=== PATIENT | male | born 1955 | race Caucasian/White ===

== ENCOUNTER 2018-09-09 11:15 | Outpatient (CLI) | payer OTHER ==
--- NOTE | 2018-09-09 14:05 | RAD ---
FXR Shoulder Lt Arthrogram History: [MA 75.102 nontraumatic tear of left rotator cuff, unspecified tear extend] Comparison: None. Findings: The patient was brought to the fluoroscopy suite. All questions were answered. Informed con sent was obtained. Timeout performed. The patient's left shoulder was prepped and draped in normal sterile fashion. 2 mL of lidocaine was i nstilled into the superficial and deep soft tissues. After adequate anesthesia, a 22-gauge spinal nee dle was inserted into the glenohumeral joint using fluoroscopic guidance. A total of 10 mL of contras t solution was instilled into the left shoulder joint. Patient tolerated the procedure well without c omplication. Impression: Technically successful fluoroscopic guided left shoulder arthrogram for MRI. Fluoroscopy time: 0.3 minute Dose area product: 163.4 microgray meters squared
--- NOTE | 2018-09-09 14:20 | MRI ---
FMRI Upper Ext Jt Lt W Con History: [M 75.102 nontraumatic tear of left rotator cuff] Comparison: None Findings: Multiplanar multisequence MRI of the left shoulder was performed after the intra-articular administration of contrast. The exam is limited as the patient could not perform any of the sagittal sequences due to being claustrophobic. Biceps tendon: There is interstitial tearing of the intra-articular biceps tendon extending to the bi ceps labral anchor. Labrum: There is high-grade tearing of the superior, anterior, and inferior labrum extending into the undersurface of the biceps tendon. Tear also extends into the anterior inferior glenoid cartilage Rotator cuff: No full-thickness perforation. Low-grade tendinosis of the supraspinatus and infraspina tus tendons. Muscles: Muscle signal and bulk is normal. Bones: No fracture. No malalignment. No abnormality of the glenoid version. Mild degenerative disease acromioclavicular joint. There is a small free body within the posterior recess measuring 5 mm in transverse by 3 mm in cranio caudad dimension with a width of 1 mm. Impression: 1. Limited evaluation of the shoulder as the patient was unable to finish the examination due to fang strophobia. There is, however, a large superior, anterior and inferior labral tear extending into the undersurface of the biceps tendon. There is also extension of tear into the anterior inferior glenoi d cartilage. 2. Rotator cuff is intact. 3. 5 x 3 x 1 mm free body within the posterior recess likely of cartilage origin.
== END 2018-09-09 11:16 | disposition home or self-care (01) ==
LOC: RAD 11:15
PROVIDERS: ATTEND Orthopaedic Surgery
DX: M75.102 Unspecified rotator cuff tear or rupture of left shoulder, not specified as traumatic (principal)
CPT/HCPCS: 23350

== ENCOUNTER 2018-10-02 03:29 | Outpatient (CLI) | payer OTHER ==
[2018-10-02 14:05] LABS: #Basophils 0.1 thou/uL (0.0-0.2); #Eosinphils 0.2 thou/uL (0.0-0.7); #Lymphocytes 2.2 thou/uL (1.20-3.40); #Monocytes 0.8 thou/uL (0.11-0.59); #Neutrophils 4.1 thou/uL (1.40-6.50); %Basophils 1.5 % (0.0-1.0); %Eosinophils 3.3 % (0.0-10.0); %Lymphocytes 29.4 % (21.0-51.0); %Monocytes 10.2 % (0.0-10.0); %Neutrophils 55.6 % (42.0-75.0); Hemoglobin 15.8 g/dL (14.0-18.0); Mean Corpuscular HGB CONC 33.4 g/dL (32.0-36.0); Mean Corpuscular Volume 92.8 fL (78.0-98.0); Mean Platelet Volume 6.6 fL (7.4-10.4); Platelet Count 361 thou/uL (130-400); RBC Distribution Width 11.2 % (11.5-14.5); White Blood Cell (WBC) Count 7.3 thou/uL (4.8-10.8)
[2018-10-02 14:26] LABS: Anion Gap 10 mmol/L (10-20); BUN (Urea Nitrogen) 16 mg/dL (8.4-25.7); Calc. Creatinine Clearance 0 mL/min (70-130); Calcium 9.4 mg/dL (7.8-10.44); Carbon Dioxide 29 mmol/L (23-31); Chloride 103 mmol/L (98-107); Estimated GFR-MDRD 78; Glucose 109 mg/dL (80-115); Potassium 3.7 mmol/L (3.5-5.1); Sodium 138 mmol/L (136-145)
--- NOTE | 2018-10-04 07:14 | EKG ---
Test Reason : Blood Pressure : / mmHG Vent. Rate : 082 BPM Atrial Rate : 082 BPM P-R Int : 198 ms QRS Dur : 104 ms QT Int : 372 ms P-R-T Axes : 049 010 023 degrees QTc Int : 434 ms Normal sinus rhythm Normal ECG No previous ECGs available Confirmed by TAIWO WEISS ([id number]) on 10/04/2018 7:14:05 AM Referred By: IERO Confirmed By:TAIWO WEISS
== END 2018-10-02 03:30 | disposition home or self-care (01) ==
LOC: LABBT 03:29
PROVIDERS: ATTEND Orthopaedic Surgery
DX: Z01.818 Encounter for other preprocedural examination (principal); M24.012 Loose body in left shoulder
CPT/HCPCS: 80048; 85025; 93005; 93010

== ENCOUNTER 2018-10-04 05:53 | Day surgery (SDC) | payer OTHER ==
[2018-10-02 13:31] VITALS: BMI 36.9
[2018-10-04] MEDS ORDERED: Lidocaine 2% Jelly 5 ML TUBE ONE (06:26)
[2018-10-04] MEDS ORDERED: Fentanyl 100 MCG/2 ML VIAL ONE (06:32)
[2018-10-04] MEDS ORDERED: Midazolam HCl 2 mg/2 ml Vial ONE (06:32)
[2018-10-04] MEDS ORDERED: Bupivacaine/Epinephrine 0.25% 30 ML VIAL ONE (06:34)
[2018-10-04] MEDS ORDERED: Ondansetron PF 4 MG/2 ML Vial IVP PRN (09:45)
[2018-10-04] MEDS ORDERED: Fentanyl 100 MCG/2 ML VIAL IV PRN (09:45)
[2018-10-04] MEDS ORDERED: Zolpidem Tartrate 5 MG TAB PO PRN (09:45)
[2018-10-04] MEDS ORDERED: Promethazine HCl 25 MG/ML VIAL IM PRN (09:45)
[2018-10-04] MEDS ORDERED: HYDROcodone/Acetaminophen 10/325 mg Tablet PO PRN ×2 (09:45)
[2018-10-04] MEDS ORDERED: traMADol HCl 50 MG TAB PO PRN ×2 (09:45)
[2018-10-04] MEDS ORDERED: Ropivacaine 0.2% 550 ML 550 ML NERVE BLCK SCH (09:45)
--- NOTE | 2018-10-04 09:57 | OP ---
DATE OF PROCEDURE: 10/04/2018 PREOPERATIVE DIAGNOSES: Left shoulder labral tear, loose bodies, and appeared to be significant biceps tearing and instability. POSTOPERATIVE DIAGNOSES: 1. Left shoulder degenerative labral tear to include the anterior, the superior and the posterior superior labrum. 2. Intertendinous tearing of the biceps tendon as well as instability of the biceps insertion and the superior labral area. 3. Multiple cartilaginous loose bodies with 2 of these being larger than 1 cm. 4. Grade 4 lesion of the humeral head with unstable chondral flaps. [employer]: Blas Jones PA-C. BLOOD LOSS: About 150 mL. PROCEDURE PERFORMED: 1. Left shoulder arthroscopy with removal of subacromial bursa. 2. Debridement and shaving of degenerative labrum as well as unstable chondral flaps on the grade 4 lesion of the humeral head. 3. Removal of multiple cartilaginous loose bodies including 2 that were greater than 1 cm. 4. Open biceps tenodesis. ANESTHESIA: The patient had general anesthetic as well as preoperative block. IMPLANTS: We used a 7 x 23 Bio[employer]posite Bio-Tenodesis screw. DISPOSITION: He did go to recovery room in stable condition. INDICATIONS: A 63-year-old male comes in complaining of shoulder pain and swelling. He had some catching and at this time has failed to get relief from nonoperative methods. At this time, he opted to have surgery. DESCRIPTION OF PROCEDURE: After all appropriate consent forms were explained and signed, he was taken back to the operating room, at which time was given general anesthetic. He was then rolled into the left lateral decubitus position with all bony prominences being well padded. Beanbag was inflated to hold in this position. The arm was then taken through full range of motion. The arm was then suspended with 15 pounds in standard arthroscopic fashion. The left shoulder and upper extremity were then prepped and draped in surgical fashion. Bony anatomical landmarks were drawn out and the subacromial space was infiltrated with Marcaine with epinephrine. Posterior portal was established. Scope was placed into the shoulder joint. Anterior working portal was made using a needle localization technique. Diagnostic arthroscopy commenced in the glenohumeral joint. There were multiple cartilaginous loose bodies. The 2 of these being greater than 1 cm. These were removed with the grasper as well as the shaver. At this time, the degenerative anterior, superior and posterior superior labrum was debrided with the shaver for better visualization. The biceps tendon itself was found to be wavy in the joint as its insertion was completely unstable and not taut. There was intertendinous tearing of the biceps as well. The rotator cuff appeared to be intact upon visualization. There were couple of loose bodies in the axillary pouch, which were removed as well. The glenoid itself was in good condition. The humeral head had some unstable chondral flaps around the grade 4 lesion. These were taken down as stable base using the shaver. At this time, the subscapularis was found to be intact. We did open up the shaver just making sure there were no more loose bodies anterior and posterior to the subscapularis around the coracoid recess and did not pull out any more loose bodies. At this time, a green cannula was placed anteriorly. A needle was used to place a stitch through the tendon and the tendon was cut off the superior labrum using the surface energy. We then repositioned the camera into the subacromial space. Lateral working portal was made and a copious amount of bursa was removed. No bony decompression was performed and no takedown of the CA ligament was performed. At this time, we removed the scope and we proceeded with open biceps tenodesis. Incision was made down through skin. Bovie was used to coagulate any brisk venous bleeding. Deltoid fascia was opened sharply and at this time, finger dissection was used to dissect down through the deltoid to the underlying humerus. The bicipital groove was opened up. The biceps was pulled out into the wound. Multiple small cartilaginous loose bodies were found at this time and removed. Copious amount of synovitic tissue was noted in the bicipital groove and this was removed and coagulated. We then sutured our tendon to remove the intra-articular portion of the tendon. We placed our pin, reamed with a 7.5 mm reamer to a depth of 25 and placed a 7 x 23 [employer] Bio-Tenodesis screw in standard fashion. Sutures were tied over top so this could not back out and at this time, we thoroughly irrigated and dried. We then closed the deltoid fascia with a running Vicryl, 2-0 Vicryl sutures were used to close skin. Simple sutures were used in our portals and at this time, bulky sterile dressing was applied to the left upper extremity. Once this was done, the patient was awakened and taken to recovery room in stable condition. All counts were correct at the end of the case and he did receive preoperative IV antibiotics. Job ID: [id number]
[2018-10-04] MEDS ORDERED: Ketorolac Tromethamine 30 MG/ML VIAL IVP SCH (12:00)
[2018-10-04] MEDS ORDERED: Ropivacaine 0.5% HCl/PF (150 MG/30 ML VIAL) ONE (15:28)
[2018-10-04] MEDS ORDERED: Ropivacaine 0.2% HCl/PF (40 MG/20 ML VIAL) ONE (15:28)
[2018-10-04] MEDS ORDERED: Lidocaine 1% PF 5 ML VIAL ONE (15:42)
[2018-10-04] MEDS ORDERED: Glycopyrrolate 0.2 MG/ML 5 ML SYRINGE ONE (15:42)
[2018-10-04] MEDS ORDERED: PHENYLEPHRINE-NS 100 MCG/ML 10 ML SYRINGE ONE (15:42)
[2018-10-04] MEDS ORDERED: Ondansetron PF 4 MG/2 ML Vial ONE (15:42)
[2018-10-04] MEDS ORDERED: Dexamethasone 20 MG/5 ML VIAL ONE (15:42)
[2018-10-04] MEDS ORDERED: Rocuronium Bromide 10 MG/ML (10ML VIAL) ONE (15:42)
[2018-10-04] MEDS ORDERED: PROPOFOL 200 MG/20 ML VIAL ONE (15:42)
== END 2018-10-04 11:40 | disposition home or self-care (01) ==
LOC: SDC 05:53
PROVIDERS: ATTEND Orthopaedic Surgery
PROC: 0RCK4ZZ Extirpation of Matter from Left Shoulder Joint, Percutaneous Endoscopic Approach (ICD-10-PCS; principal; 2018-10-04)
PROC: 0LS20ZZ Reposition Left Shoulder Tendon, Open Approach (ICD-10-PCS; principal; 2018-10-04)
PROC: 0RBK4ZZ Excision of Left Shoulder Joint, Percutaneous Endoscopic Approach (ICD-10-PCS; principal; 2018-10-04)
DX: M24.012 Loose body in left shoulder (principal); S43.402A Unspecified sprain of left shoulder joint, initial encounter; M10.9 Gout, unspecified; F17.200 Nicotine dependence, unspecified, uncomplicated; Z79.899 Other long term (current) drug therapy; Z88.5 Allergy status to narcotic agent
CPT/HCPCS: A4306; C1713; J0690; J1100; J2001; J2250; J2405; J2704; J2795; J3010

== ENCOUNTER 2021-11-23 07:16 | Inpatient (IN) | payer OTHER ==
[2021-11-23 13:01] VITALS: BMI 38.2
[2021-11-23 15:16] LABS: Bilirubin Neg (Negative); Blood, Urine 10 (Negative); Glucose, Urine (Dipstick) Normal (Negative); Ketone, Urine Negative (Negative); Leukocyte Negative (Negative); Nitrite Negative (Negative); Protein, Urine (Dipstick) Negative (Neg-Trace); Urobilinogen Normal mg/dL (Less than 2)
[2021-11-23 15:18] LABS: #Basophils 0.1 10x3/uL (0.0-0.2); #Eosinphils 0.3 10x3/uL (0.0-0.5); #Monocytes 0.9 10x3/uL (0.0-1.1); #Neutrophils 3.7 10x3/uL (1.5-8.4); %Eosinophils 4.5 % (0.0-6.0); %Lymphocytes 27.5 % (18.0-47.0); %Monocytes 13.4 % (0.0-10.0); %Neutrophils 53.2 % (40.0-75.0); Hemoglobin 15.3 g/dL (13.5-17.5); Mean Corpuscular HGB CONC 33.8 g/dL (32.0-36.0); Mean Corpuscular Hemoglobin 30.7 pg (27.0-33.0); Mean Platelet Volume 9.3 fl (7.4-10.4); Platelet Count 374 10x3/uL (150-450); RBC Distribution Width 12.4 % (11.5-14.5); Red Blood Cell (RBC) Count 4.98 10x6/uL (4.32-5.72)
[2021-11-23 15:22] LABS: Clarity Clear (Clear)
[2021-11-23 15:37] LABS: Prothrombin Time 10.9 sec (9.5-12.1)
[2021-11-23 15:43] LABS: Anion Gap 15 mmol/L (10-20); BUN (Urea Nitrogen) 16 mg/dL (8.4-25.7); Calc. Creatinine Clearance 0 mL/min (70-130); Calcium 9.2 mg/dL (7.8-10.44); Carbon Dioxide 25 mmol/L (23-31); Chloride 107 mmol/L (98-107); Glucose 81 mg/dL (80-115); Potassium 4.5 mmol/L (3.5-5.1); Sodium 142 mmol/L (136-145)
[2021-11-28] MEDS ORDERED: Tranexamic Acid 1,000 MG/10 ML VIAL ONE ×2 (07:19→12:12)
[2021-11-28] MEDS ORDERED: Sodium Chloride 0.9% 100 ML ONE ×2 (07:19→09:22)
[2021-11-28] MEDS ORDERED: VANCOMYCIN 2 GRAM/500 ML BAG 2 GM in Premix Bag 1 BAG IVPB SCH (07:30)
[2021-11-28] MEDS ORDERED: Midazolam HCl 2 mg/2 ml Vial ONE (07:47)
[2021-11-28] MEDS ORDERED: Fentanyl 100 MCG/2 ML VIAL ONE ×2 (07:47→12:12)
[2021-11-28] MEDS ORDERED: Fentanyl 100 MCG/2 ML VIAL SLOW IVP PRN (08:51)
[2021-11-28] MEDS ORDERED: HYDROcodone/Acetaminophen 10/325 mg Tablet PO PRN (09:00)
[2021-11-28] MEDS ORDERED: Ondansetron PF 4 MG/2 ML Vial IVP PRN ×2 (09:00→11:50)
[2021-11-28] MEDS ORDERED: Promethazine HCl 25 MG/ML VIAL IM PRN ×3 (09:00→11:57)
[2021-11-28] MEDS ORDERED: Zolpidem Tartrate 5 MG TAB PO PRN ×2 (09:00→11:50)
[2021-11-28] MEDS ORDERED: Ropivacaine 0.2% 550 ML 550 ML NERVE BLCK SCH (09:00)
[2021-11-28] MEDS ORDERED: traMADol HCl 50 MG TAB PO PRN ×2 (09:00)
[2021-11-28] MEDS ORDERED: fentaNYL Citrate/PF 100 MCG/2 ML SYRINGE ONE (09:11)
[2021-11-28] MEDS ORDERED: Bupivacaine 0.25% HCL 30 ML VIAL ONE (09:13)
[2021-11-28] MEDS ORDERED: CEFAZOLIN 2 GM VIAL ONE ×2 (09:21→09:22)
[2021-11-28] MEDS ORDERED: diphenhydrAMINE 25 MG CAP PO PRN (11:50)
[2021-11-28] MEDS ORDERED: Acetaminophen 325 MG TAB PO PRN (11:50)
[2021-11-28] MEDS ORDERED: Promethazine HCl 25 MG/ML VIAL IVPB PRN (11:57)
[2021-11-28] MEDS ORDERED: HYDROmorphone 2 MG/ML VIAL SLOW IVP PRN (11:57)
[2021-11-28] MEDS ORDERED: Ondansetron HCl/PF 4 MG/2 ML Vial IVP PRN (11:57)
[2021-11-28] MEDS ORDERED: Tranexamic Acid 1,000 MG in Sodium Chloride 0.9% 100 ML IVPB SCH (12:00)
[2021-11-28] MEDS ORDERED: ceFAZolin 2 GM/Dextrose 50 ML 2 GM in Premix Bag 1 BAG IVPB SCH (12:00)
[2021-11-28] MEDS ORDERED: Labetalol HCl 100 MG/20 ML VIAL ONE (12:37)
[2021-11-28] MEDS: Sodium Chloride 0.9% 1,000 ML IV SCH ×2 (14:22→22:14)
[2021-11-28] MEDS: HYDROcodone/Acetaminophen 10/325 mg Tablet PO PRN ×2 (15:04→20:39)
[2021-11-28] MEDS: CEFAZOLIN 2 GM in Sodium Chloride 0.9% 100 ML IVPB SCH (17:03)
[2021-11-28] MEDS: Aspirin 81 mg Enteric Coated Tablet PO SCH (20:39)
[2021-11-28] MEDS: Ferrous Gluconate 324 MG TAB PO SCH (20:39)
[2021-11-28] MEDS: Senokot S 8.6-50 MG TAB PO SCH (20:42)
[2021-11-29] MEDS: CEFAZOLIN 2 GM in Sodium Chloride 0.9% 100 ML IVPB SCH (01:08)
[2021-11-29] MEDS: HYDROcodone/Acetaminophen 10/325 mg Tablet PO PRN ×3 (02:39→14:32)
[2021-11-29 05:25] LABS: Hemoglobin 13.9 g/dL (14.0-18.0); Mean Corpuscular HGB CONC 33.2 g/dL (32.0-36.0); Mean Corpuscular Hemoglobin 32.2 pg (27.0-31.0); Mean Corpuscular Volume 96.8 fL (78.0-98.0); Mean Platelet Volume 6.4 fL (7.4-10.4); Platelet Count 354 thou/uL (130-400); RBC Distribution Width 11.2 % (11.5-14.5); Red Blood Cell (RBC) Count 4.34 mill/uL (4.70-6.10); White Blood Cell (WBC) Count 15.2 thou/uL (4.8-10.8)
[2021-11-29] MEDS: Aspirin 81 mg Enteric Coated Tablet PO SCH (08:07)
[2021-11-29] MEDS: Ferrous Gluconate 324 MG TAB PO SCH (08:08)
[2021-11-29] MEDS: Sodium Chloride 0.9% 1,000 ML IV SCH (08:12)
[2021-11-29] MEDS: Senokot S 8.6-50 MG TAB PO SCH (08:14)
[2021-11-29] MEDS ORDERED: CeleCOXIB 100 MG CAP PO SCH (09:00)
[2021-11-29] MEDS ORDERED: Multivitamin W/ Minerals 1 TAB PO SCH (09:00)
[2021-11-29 11:36] VITALS: BP 134/82; TEMP 97.4
== END 2021-11-29 14:46 | disposition home or self-care (01) | DRG 470 ==
LOC: SURG A 11-28 06:34 → SJJU 11-28 14:14
PROVIDERS: ADMIT Orthopaedic Surgery; ATTEND Orthopaedic Surgery
PROC: 0SRD0J9 Replacement of Left Knee Joint with Synthetic Substitute, Cemented, Open Approach (ICD-10-PCS; principal; 2021-11-28)
DX: M17.12 Unilateral primary osteoarthritis, left knee (principal); Z20.822 Contact with and (suspected) exposure to COVID-19; Z90.49 Acquired absence of other specified parts of digestive tract; Z98.890 Other specified postprocedural states; Z88.5 Allergy status to narcotic agent
CPT/HCPCS: 36415; 80048; 81003; 85025; 85027; 85610; 86850; 86900; 86901; 87081; A4306; C1713; C1776; J0690; J2250; J2550; J2795; J3010; J3370; J3490; J7030; S0020; U0003; U0005

== ENCOUNTER 2021-11-23 13:45 | Outpatient (CLI) | payer OTHER | END 2021-11-23 13:46 | disposition home or self-care (01) | LOC: LABBT 13:45 | PROVIDERS: ATTEND Orthopaedic Surgery | DX: Z01.818 Encounter for other preprocedural examination (principal); M17.12 Unilateral primary osteoarthritis, left knee | CPT/HCPCS: 71046; 93005; 93010 ==

== ENCOUNTER 2024-05-22 10:40 | Outpatient (CLI) | payer MEDICARE, OTHER ==
[2024-05-22 13:01] LABS: #Basophils 0.06 10x3/uL (0.0-0.2); %Basophils 0.9 % (0.0-1.0); %Lymphocytes 30.5 % (21.0-51.0); %Monocytes 11.4 % (0.0-10.0); %Neutrophils 51.9 % (42.0-75.0); Hemoglobin 15.8 g/dL (14.0-18.0); Mean Corpuscular HGB CONC 32.9 g/dL (32.0-36.0); Mean Corpuscular Hemoglobin 30.3 pg (27.0-31.0); Mean Platelet Volume 9.2 fL (7.4-10.4); Platelet Count 345 10x3/uL (130-400); Red Blood Cell (RBC) Count 5.22 mill/uL (4.70-6.10)
[2024-05-22 13:14] LABS: Anion Gap 14 mmol/L (10-20); BUN (Urea Nitrogen) 12 mg/dL (8.4-25.7); Calc. Creatinine Clearance 0 mL/min (70-130); Calcium 9.4 mg/dL (7.8-10.44); Carbon Dioxide 26 mmol/L (23-31); Chloride 103 mmol/L (98-107); Estimated GFR 88; Glucose 94 mg/dL (80-115); Potassium 4.2 mmol/L (3.5-5.1); Prothrombin Time 13.3 sec (12.0-14.7); Sodium 139 mmol/L (136-145)
== END 2024-05-22 10:41 | disposition home or self-care (01) ==
LOC: LABBT 10:40
PROVIDERS: ATTEND Orthopaedic Surgery
DX: Z01.818 Encounter for other preprocedural examination (principal); M19.012 Primary osteoarthritis, left shoulder; I49.8 Other specified cardiac arrhythmias
CPT/HCPCS: 80048; 85025; 85610; 87081; 93005; 93010